=== PATIENT | female | born 1955 | race Caucasian/White ===

== ENCOUNTER 2016-12-07 14:41 | Inpatient (IN) | payer BC ==
[~2016-12-07] VITALS: Ht 167.6 cm; Wt 92.5 kg
[2016-12-07] MEDS ORDERED: ED DILTIAZEM DRIP 125 ML IV ONE (15:14)
[2016-12-07] MEDS ORDERED: SODIUM CHLORIDE 0.9% 250 ML IV ONE (15:14)
[2016-12-07] MEDS ORDERED: Furosemide 40 MG/4 ML VIAL IV ONE (17:40)
[2016-12-07 18:40] VITALS: BP_SYST 106; RESP 18; TEMP 97.4
[2016-12-07 18:42] VITALS: Ht 167.6 cm; Wt 92.5 kg
[2016-12-07 20:51] VITALS: BP_SYST 114
[2016-12-07] MEDS ORDERED: ACETAMINOPHEN 325 MG TAB PO PRN (23:00)
[2016-12-07] MEDS ORDERED: ACETAMINOPHEN 325 MG TAB ONE (23:01)
[2016-12-07 23:35] VITALS: BP_SYST 118; RESP 16; TEMP 97.4
[2016-12-08] VITALS (22 sets, daily range): BP systolic 95–132; RESP 16–18; TEMP 96.1–98.9
[2016-12-08] MEDS ORDERED: MISSING DOSE XX ONE (04:50)
[2016-12-08] MEDS: CARDIZEM 1 MG/ML DRIP 125 ML IV SCH ×2 (10:09→10:50)
[2016-12-08] MEDS ORDERED: DIGOXIN 0.5 MG/2 ML AMP IV ONE (11:55)
[2016-12-08] MEDS ORDERED: Furosemide 40 MG/4 ML VIAL IV ONE (12:45)
[2016-12-08] MEDS ORDERED: KCL CR 20 MEQ TAB PO ONE (12:45)
[2016-12-08] MEDS ORDERED: LORAZEPAM 2 MG/ML VIAL IV ONE (12:50)
[2016-12-08] MEDS: DABIGATRAN 150 MG CAP PO SCH ×2 (13:27→20:34)
[2016-12-08] MEDS: TEMAZEPAM 15 MG CAP PO SCH (20:34)
[2016-12-09] VITALS (54 sets, daily range): BP systolic 83–137; RESP 16–18; TEMP 97.4–97.8
[2016-12-09] MEDS ORDERED: MISSING DOSE XX ONE ×2 (03:20→20:55)
[2016-12-09] MEDS: CARDIZEM 1 MG/ML DRIP 125 ML IV SCH (05:14)
[2016-12-09] MEDS: DABIGATRAN 150 MG CAP PO SCH ×2 (08:13→21:08)
[2016-12-09] MEDS ORDERED: AMIODARONE 150 MG in DEXTROSE 5% 100 ML IV ONE ×2 (09:45→10:05)
[2016-12-09] MEDS ORDERED: AMIODARONE 900 MG in DEXTROSE 5% EXCEL 500 ML IV SCH (09:45)
[2016-12-09] MEDS ORDERED: DILTIAZEM 30 MG TAB PO ONE ×2 (14:50→21:00)
[2016-12-09] MEDS ORDERED: DIGOXIN 0.5 MG/2 ML AMP IV ONE (14:50)
[2016-12-09] MEDS: TEMAZEPAM 15 MG CAP PO SCH (21:08)
[2016-12-09] MEDS ORDERED: FENTANYL 100 MCG/2 ML AMP ONE (22:02)
[2016-12-09] MEDS ORDERED: MEPERIDINE 50 MG/ML ONE (22:02)
[2016-12-09] MEDS ORDERED: MIDAZOLAM 2 MG/2 ML INJ ONE (22:02)
[2016-12-09] MEDS ORDERED: AMIODARONE 450 MG in DEXTROSE 5% AVIVA 250 ML IV SCH (23:20)
[2016-12-10] VITALS (13 sets, daily range): BP systolic 118–136; RESP 16–20; TEMP 97.2–98.2
[2016-12-10] MEDS: DABIGATRAN 150 MG CAP PO SCH (07:51)
[2016-12-10] MEDS ORDERED: METOPROLOL XL 50 MG TAB PO SCH (09:20)
[2016-12-10] MEDS ORDERED: DILTIAZEM CD 120 MG CAP PO SCH (09:20)
[2016-12-10] MEDS ORDERED: LORAZEPAM 0.5 MG TAB PO ONE (09:45)
[2016-12-10] MEDS ORDERED: LORAZEPAM 0.5 MG TAB ONE (11:23)
[2016-12-10] MEDS ORDERED: METOPROLOL XL 25 MG TAB PO ONE (16:00)
== END 2016-12-10 19:00 | disposition home or self-care (01) | DRG 308 ==
LOC: ENRESERVDT → ENRESERVTM → ER 14:41 → ENPENDDIS 16:49 → EMR 16:49 → 4THE 18:27
PROVIDERS: ADMIT Specialist; ATTEND Specialist
PROC: 5A2204Z Restoration of Cardiac Rhythm, Single (ICD-10-PCS; principal; 2016-12-09)
DX: I48.91 Unspecified atrial fibrillation (principal); I50.31 Acute diastolic (congestive) heart failure; I11.0 Hypertensive heart disease with heart failure; K21.9 Gastro-esophageal reflux disease without esophagitis; F41.9 Anxiety disorder, unspecified
CPT/HCPCS: 36415; 71010; 80048; 80053; 82550; 83735; 84439; 84443; 84484; 85025; 85610; 85730; 92960; 93005; 93306; 96365; 96366